=== PATIENT | female | born 1945 | race Caucasian/White ===

== ENCOUNTER 2018-09-25 10:15 | Inpatient (IN) | payer MEDICARE, BC ==
[2018-09-25] MEDS: DEXAMETHASONE 4 MG/ML 1 ML INJ IV (06:00)
[~2018-09-25 10:15] MED LIST: LACTATED RINGER'S 1,000 ML IV*; PROPOFOL 200 MG INJ
[2018-09-25] MEDS: ACETAMINOPHEN 1000MG/100ML IV 100 ML IVPB ×2 (10:54→11:31)
[2018-09-25] MEDS ORDERED: METOCLOPRAMIDE 10 MG INJ (12:36)
[2018-09-25] MEDS ORDERED: POLYMYXIN B 500000 UNIT INJ (12:42)
[2018-09-25] MEDS ORDERED: ONDANSETRON 4 MG INJ IV (13:00)
[2018-09-25] MEDS ORDERED: HYDROmorphONE 1 MG/5 ML IV SYRINGE IV ×3 (13:00)
[2018-09-25] MEDS ORDERED: LABETALOL HCL 20MG INJ IV (13:00)
[2018-09-25] MEDS ORDERED: DIPHENHYDRAMINE 50 MG INJ IV (13:00)
[2018-09-25] MEDS ORDERED: hydrALAzine 20 MG INJ IV (13:00)
[2018-09-25] MEDS ORDERED: ONDANSETRON 4 MG INJ (13:04)
[2018-09-25] MEDS ORDERED: DEXAMETHASONE 4 MG/ML 5 ML INJ (13:04)
[2018-09-25] MEDS ORDERED: PROPOFOL 20 ML (13:04)
[2018-09-25] MEDS ORDERED: HYDROmorphONE 2 MG/ML SYG (13:05)
[2018-09-25] MEDS ORDERED: TRANEXAMIC ACID 1GM/100ML(PMX) 100 ML ×2 (13:18→13:53)
[2018-09-25] MEDS ORDERED: CEFAZOLIN 1 GM INJ (13:28)
[2018-09-25] MEDS: POLYMYXIN B 500000 UNIT INJ IRR (13:59)
[2018-09-25] MEDS: BACITRACIN 50000 UNITS INJ (13:59)
[2018-09-25] MEDS ORDERED: PHENYLephrine (100 MCG/ML) 5ML SYG (14:34)
[2018-09-25] MEDS ORDERED: ALBUMIN HUMAN 5% 250 ML (15:17)
[2018-09-25] MEDS ORDERED: ROPIVACAINE 0.5 % 30 ML VIAL (15:18)
[2018-09-25] MEDS ORDERED: EPHEDrine 50 MG INJ (15:35)
[2018-09-25] MEDS ORDERED: NACL 0.9% 3 ML SYG IV (16:00)
[2018-09-25] MEDS ORDERED: NALOXONE (0.4 MG/ML) INJ IV (16:00)
[2018-09-25] MEDS ORDERED: MAGNESIUM HYDROXIDE 30ML CUP PO (16:00)
[2018-09-25] MEDS: CEFAZOLIN 2 GM/50 ML (PMX) 50 ML IVPB ×2 (16:29→23:41)
[2018-09-25 16:41] LABS: HEMATOCRIT 33.2 % (37.0-47.0); HEMOGLOBIN 10.5 g/dl (12.0-16.0)
[2018-09-25] MEDS: GABAPENTIN 100 MG CAP PO ×2 (20:53→20:57)
[2018-09-25] MEDS: KETOROLAC 15 MG INJ IV (20:53)
[2018-09-25] MEDS: SERTRALINE 100 MG TAB PO (20:53)
[2018-09-25] MEDS: LACTATED RINGER'S 1,000 ML IV (20:54)
[2018-09-25] MEDS: HYDROmorphONE 1 MG/ML SYG IV (22:10)
[2018-09-25] MEDS: ONDANSETRON 4 MG INJ IV (22:17)
[2018-09-26] MEDS: LORAZEPAM 1 MG TAB PO ×2 (01:40→23:06)
[2018-09-26] MEDS: LACTATED RINGER'S 1,000 ML IV (04:25)
[2018-09-26] MEDS: LIOTHYRONINE 5 MCG TAB PO (06:32)
[2018-09-26] MEDS: PANTOPRAZOLE (EC) 40 MG TAB PO (06:32)
[2018-09-26] MEDS: LEVOTHYROXINE 100 MCG TAB PO (06:32)
[2018-09-26 06:54] LABS: ADD MAN DIFF? NO
[2018-09-26 06:59] LABS: WHITE BLOOD COUNT 11.9 10^3/ul (4.8-10.8)
[2018-09-26 06:59] LABS: BASOPHILS % 0.1 % (0.0-2.0); EOSINOPHILS % 0.1 % (0.0-7.0); HEMATOCRIT 24.2 % (37.0-47.0); HEMOGLOBIN 7.8 g/dl (12.0-16.0); LYMPHOCYTES # 1.4 10^3/ul (0.8-2.9); LYMPHOCYTES % 11.6 % (15.0-51.0); MEAN CORPUSCULAR HEMOGLOBIN 30.5 pg (29.0-33.0); MEAN CORPUSCULAR HGB CONC 32.2 g/dl (32.0-37.0); MEAN CORPUSCULAR VOLUME 94.5 fl (82.0-101.0); MEAN PLATELET VOLUME 9.2 fl (7.4-10.4); MONOCYTE # 1.3 10^3/ul (0.3-0.9); MONOCYTES % 11.3 % (0.0-11.0); NEUTROPHILS % 76.2 % (39.0-77.0); PLATELET COUNT 225 10^3/UL (140-415); RED BLOOD COUNT 2.56 10^6/ul (4.20-5.40); RED CELL DISTRIBUTION WIDTH 12.4 % (11.5-14.5)
[2018-09-26 07:20] LABS: ANION GAP 6 (5-13); BLOOD UREA NITROGEN 11 mg/dl (7-20); CALCIUM 8.9 mg/dl (8.4-10.2); CARBON DIOXIDE 28 mmol/L (21-31); CHLORIDE 104 mmol/L (97-110); CREATININE 0.67 mg/dl (0.44-1.00); GLUCOSE 119 mg/dl (70-220); POTASSIUM 4.3 mmol/L (3.5-5.1); SODIUM 138 mmol/L (135-144)
[2018-09-26 07:38] LABS: FREE THYROXINE INDEX (Calc) 2.28 ug/ml (0.65-3.89); T4 (THYROXINE) 5.7 ug/dl (5.5-11.0)
[2018-09-26 07:52] LABS: THYROID STIMULATING HORMONE < 0.015 MIU/L (0.465-4.680)
[2018-09-26] MEDS: CHOLECALCIFEROL 1,000 UNIT TAB PO (09:00)
[2018-09-26] MEDS ORDERED: LIOTHYRONINE 5 MCG TAB PO (09:00)
[2018-09-26] MEDS: GABAPENTIN 100 MG CAP PO ×2 (09:00→12:16)
[2018-09-26] MEDS: HYDROmorphONE 1 MG/ML SYG IV ×2 (09:11→16:35)
[2018-09-26] MEDS: DOCUSATE SODIUM 100 MG CAP PO ×2 (09:12→20:13)
[2018-09-26] MEDS: ASPIRIN (EC) 81 MG TAB PO ×2 (09:12→20:13)
[2018-09-26] MEDS: CEFAZOLIN 2 GM/50 ML (PMX) 50 ML IVPB (09:16)
[2018-09-26] MEDS: CELECOXIB 100 MG CAP PO ×2 (09:36→20:13)
[2018-09-26] MEDS ORDERED: ONDANSETRON 4 MG INJ IV (16:00)
[2018-09-26] MEDS: DIPHENHYDRAMINE 2.5 MG/ML 5ML CUP PO (19:04)
[2018-09-26] MEDS: FERROUS SULFATE (EC) 325 MG TAB PO (20:13)
[2018-09-26] MEDS: SERTRALINE 100 MG TAB PO (20:14)
[2018-09-27] MEDS: LEVOTHYROXINE 88 MCG TAB PO (05:50)
[2018-09-27] MEDS: PANTOPRAZOLE (EC) 40 MG TAB PO (05:50)
[2018-09-27 06:35] LABS: ADD MAN DIFF? NO
[2018-09-27 06:42] LABS: WHITE BLOOD COUNT 8.2 10^3/ul (4.8-10.8)
[2018-09-27 06:42] LABS: BASOPHILS % 0.2 % (0.0-2.0); EOSINOPHILS # 0.1 10^3/ul (0.0-0.5); EOSINOPHILS % 0.9 % (0.0-7.0); HEMATOCRIT 22.8 % (37.0-47.0); HEMOGLOBIN 7.4 g/dl (12.0-16.0); LYMPHOCYTES # 1.9 10^3/ul (0.8-2.9); LYMPHOCYTES % 22.9 % (15.0-51.0); MEAN CORPUSCULAR HEMOGLOBIN 30.8 pg (29.0-33.0); MEAN CORPUSCULAR HGB CONC 32.5 g/dl (32.0-37.0); MEAN PLATELET VOLUME 9.7 fl (7.4-10.4); MONOCYTES % 12.3 % (0.0-11.0); NEUTROPHIL # 5.2 10^3/ul (1.6-7.5); NEUTROPHILS % 63.5 % (39.0-77.0); PLATELET COUNT 215 10^3/UL (140-415); RED CELL DISTRIBUTION WIDTH 12.6 % (11.5-14.5)
[2018-09-27 07:20] LABS: ANION GAP 4 (5-13); BLOOD UREA NITROGEN 11 mg/dl (7-20); CALCIUM 8.8 mg/dl (8.4-10.2); CARBON DIOXIDE 30 mmol/L (21-31); CHLORIDE 104 mmol/L (97-110); CREATININE 0.67 mg/dl (0.44-1.00); GLUCOSE 128 mg/dl (70-220); POTASSIUM 3.8 mmol/L (3.5-5.1); SODIUM 138 mmol/L (135-144)
[2018-09-27] MEDS: CHOLECALCIFEROL 1,000 UNIT TAB PO (09:31)
[2018-09-27] MEDS: DOCUSATE SODIUM 100 MG CAP PO ×2 (09:31→21:59)
[2018-09-27] MEDS: ASPIRIN (EC) 81 MG TAB PO ×2 (09:32→21:59)
[2018-09-27] MEDS: CELECOXIB 100 MG CAP PO ×2 (09:32→22:04)
[2018-09-27] MEDS: FERROUS SULFATE (EC) 325 MG TAB PO ×3 (09:32→21:59)
[2018-09-27] MEDS: HYDROmorphONE 1 MG/ML SYG IV ×2 (09:32→16:55)
[2018-09-27] MEDS: CEFAZOLIN 2 GM/50 ML (PMX) 50 ML IVPB (13:00)
[2018-09-27] MEDS: TRANEXAMIC ACID 1GM/100ML(PMX) 100 ML PRE-OP X1 IVPB (13:00)
[2018-09-27] MEDS: TRANEXAMIC ACID 1GM/100ML(PMX) 100 ML INTRA-OP X1 IVPB (13:00)
[2018-09-27] MEDS: ACETAMINOPHEN 500 MG TAB PO (13:01)
[2018-09-27] MEDS: SERTRALINE 100 MG TAB PO (21:00)
[2018-09-27] MEDS: LORAZEPAM 1 MG TAB PO (22:04)
[2018-09-28 05:22] LABS: ADD MAN DIFF? NO
[2018-09-28 05:37] LABS: BASOPHILS % 0.2 % (0.0-2.0); EOSINOPHILS # 0.1 10^3/ul (0.0-0.5); EOSINOPHILS % 1.7 % (0.0-7.0); HEMATOCRIT 22.8 % (37.0-47.0); HEMOGLOBIN 7.4 g/dl (12.0-16.0); LYMPHOCYTES # 2.5 10^3/ul (0.8-2.9); LYMPHOCYTES % 29.6 % (15.0-51.0); MEAN CORPUSCULAR HEMOGLOBIN 30.6 pg (29.0-33.0); MEAN CORPUSCULAR HGB CONC 32.5 g/dl (32.0-37.0); MEAN CORPUSCULAR VOLUME 94.2 fl (82.0-101.0); MEAN PLATELET VOLUME 9.8 fl (7.4-10.4); MONOCYTE # 0.9 10^3/ul (0.3-0.9); MONOCYTES % 11.3 % (0.0-11.0); NEUTROPHIL # 4.7 10^3/ul (1.6-7.5); NEUTROPHILS % 56.7 % (39.0-77.0); PLATELET COUNT 227 10^3/UL (140-415); RED BLOOD COUNT 2.42 10^6/ul (4.20-5.40); RED CELL DISTRIBUTION WIDTH 12.7 % (11.5-14.5)
[2018-09-28 05:37] LABS: WHITE BLOOD COUNT 8.3 10^3/ul (4.8-10.8)
[2018-09-28 05:54] LABS: ANION GAP 3 (5-13); BLOOD UREA NITROGEN 8 mg/dl (7-20); CALCIUM 8.8 mg/dl (8.4-10.2); CARBON DIOXIDE 30 mmol/L (21-31); CHLORIDE 107 mmol/L (97-110); CREATININE 0.52 mg/dl (0.44-1.00); GLUCOSE 112 mg/dl (70-220); POTASSIUM 3.7 mmol/L (3.5-5.1); SODIUM 140 mmol/L (135-144)
[2018-09-28] MEDS: PANTOPRAZOLE (EC) 40 MG TAB PO (06:04)
[2018-09-28] MEDS: LEVOTHYROXINE 88 MCG TAB PO (06:04)
[2018-09-28] MEDS: CELECOXIB 100 MG CAP PO ×2 (09:27→20:38)
[2018-09-28] MEDS: ASPIRIN (EC) 81 MG TAB PO ×2 (09:27→20:39)
[2018-09-28] MEDS: CHOLECALCIFEROL 1,000 UNIT TAB PO (09:27)
[2018-09-28] MEDS: FERROUS SULFATE (EC) 325 MG TAB PO ×3 (09:27→20:39)
[2018-09-28] MEDS: HYDROmorphONE 1 MG/ML SYG IV ×2 (09:28→14:25)
[2018-09-28] MEDS: DOCUSATE SODIUM 100 MG CAP PO ×2 (09:28→20:39)
[2018-09-28] MEDS: ONDANSETRON 4 MG INJ IV (10:56)
[2018-09-28] MEDS: SERTRALINE 100 MG TAB PO (21:00)
[2018-09-28] MEDS: LORAZEPAM 1 MG TAB PO (21:32)
[2018-09-29] MEDS: PANTOPRAZOLE (EC) 40 MG TAB PO (06:36)
[2018-09-29] MEDS: LEVOTHYROXINE 88 MCG TAB PO (06:36)
[2018-09-29] MEDS: FERROUS SULFATE (EC) 325 MG TAB PO ×2 (08:59→13:39)
[2018-09-29] MEDS: ASPIRIN (EC) 81 MG TAB PO (08:59)
[2018-09-29] MEDS: CHOLECALCIFEROL 1,000 UNIT TAB PO (08:59)
[2018-09-29] MEDS: CELECOXIB 100 MG CAP PO (08:59)
[2018-09-29 09:26] LABS: ADD MAN DIFF? NO
[2018-09-29 09:28] LABS: WHITE BLOOD COUNT 10.4 10^3/ul (4.8-10.8)
[2018-09-29 09:28] LABS: BASOPHIL # 0.1 10^3/ul (0.0-0.1); BASOPHILS % 0.5 % (0.0-2.0); EOSINOPHILS # 0.2 10^3/ul (0.0-0.5); EOSINOPHILS % 2.1 % (0.0-7.0); HEMATOCRIT 27.4 % (37.0-47.0); HEMOGLOBIN 8.7 g/dl (12.0-16.0); LYMPHOCYTES # 2.7 10^3/ul (0.8-2.9); MEAN CORPUSCULAR HEMOGLOBIN 30.3 pg (29.0-33.0); MEAN CORPUSCULAR HGB CONC 31.8 g/dl (32.0-37.0); MEAN CORPUSCULAR VOLUME 95.5 fl (82.0-101.0); MEAN PLATELET VOLUME 9.5 fl (7.4-10.4); MONOCYTE # 0.8 10^3/ul (0.3-0.9); MONOCYTES % 7.2 % (0.0-11.0); NEUTROPHIL # 6.7 10^3/ul (1.6-7.5); NEUTROPHILS % 63.7 % (39.0-77.0); PLATELET COUNT 348 10^3/UL (140-415); RED BLOOD COUNT 2.87 10^6/ul (4.20-5.40); RED CELL DISTRIBUTION WIDTH 12.6 % (11.5-14.5)
[2018-09-29 09:48] LABS: ANION GAP 8 (5-13); BLOOD UREA NITROGEN 12 mg/dl (7-20); CALCIUM 9.3 mg/dl (8.4-10.2); CARBON DIOXIDE 30 mmol/L (21-31); CHLORIDE 103 mmol/L (97-110); CREATININE 0.66 mg/dl (0.44-1.00); GLUCOSE 129 mg/dl (70-220); SODIUM 141 mmol/L (135-144)
[2018-09-29] MEDS: HYDROmorphONE 1 MG/ML SYG IV ×3 (10:10→18:19)
[2018-09-29] MEDS: ONDANSETRON 4 MG INJ IV (17:21)
== END 2018-09-29 18:55 | DRG 467 ==
LOC: REC 10:15 → MS1 09-27 14:39 → TEL 19:44
PROC: 0SR904Z Replacement of Right Hip Joint with Ceramic on Polyethylene Synthetic Substitute, Open Approach (ICD-10-PCS; principal; 2018-09-25 11:30)
PROC: 0SP90JZ Removal of Synthetic Substitute from Right Hip Joint, Open Approach (ICD-10-PCS; 2018-09-25 11:30)
DX: T84.060A Wear of articular bearing surface of internal prosthetic right hip joint, initial encounter (principal); D62 Acute posthemorrhagic anemia; E03.9 Hypothyroidism, unspecified; F41.9 Anxiety disorder, unspecified; F33.42 Major depressive disorder, recurrent, in full remission; Y83.2 Surgical operation with anastomosis, bypass or graft as the cause of abnormal reaction of the patient, or of later complication, without mention of misadventure at the time of the procedure
CPT/HCPCS: 73530; 80048; 84436; 84443; 84479; 85014; 85018; 85025; 86850; 86900; 86901; 87070; 87102; 87116; 88300; 97110; 97116; 97161; 97167; 97530; 97535